=== PATIENT | male | born 1975 | race Caucasian/White ===

== ENCOUNTER 2023-01-19 14:21 | Inpatient (IN) | payer OTHER ==
[2023-01-19 14:53] VITALS: BMI 29.5
[2023-01-19] MEDS ORDERED: NALOXONE HCL 0.4 MG/ML VIAL IM PRN (19:58)
[2023-01-19] MEDS ORDERED: NICOTINE POLACRILEX 2 MG GUM BUC PRN (19:58)
[2023-01-19] MEDS ORDERED: BENZOCAINE/MENTHOL (CHLORASEPTIC ) LOZENGE MM PRN (19:58)
[2023-01-19] MEDS ORDERED: COLLOIDAL OATMEAL 1 BAR EACH TP PRN (19:58)
[2023-01-19] MEDS ORDERED: ACETAMINOPHEN 325 MG TABLET (FP) PO PRN (19:58)
[2023-01-19] MEDS ORDERED: NALOXONE HCL (KLOXXADO) 8 MG SPRAY NS PRN (19:58)
[2023-01-19] MEDS ORDERED: MAG HYDROX/AL HYDROX/SIMETH 30 ML UNIT-DOSE CUP PO PRN (19:58)
[2023-01-19] MEDS ORDERED: guaiFENesin 600 MG TABLET.ER (FP) PO PRN (19:58)
[2023-01-19] MEDS ORDERED: POLYETHYLENE GLYCOL (HEALTHYLAX) 3350 17 GM PACKET PO PRN (19:58)
[2023-01-19] MEDS ORDERED: LOPERAMIDE HCL 2 MG CAPSULE PO PRN (19:58)
[2023-01-19] MEDS ORDERED: BENZONATATE 200 MG CAPSULE PO PRN (19:58)
[2023-01-19] MEDS ORDERED: MAGNESIUM HYDROX 2400MG/30ML ORAL SUSPENSION 30 ML CUP PO PRN (19:58)
[2023-01-19] MEDS: BACITRACIN ZINC 15 GM TUBE TOPICAL OINTMENT TP SCH (21:45)
[2023-01-19] MEDS: SULFAMETHOXAZOLE/TRIMETHOPRIM 800MG/160MG D.S. TABLET PO SCH (21:45)
[2023-01-19] MEDS: THIAMINE HCL 100 MG TABLET (FP) PO SCH (21:45)
[2023-01-19] MEDS: MELATONIN 5 MG TABLETS PO SCH (21:46)
[2023-01-19] MEDS ORDERED: TUBERCULIN PPD 5 TU/0.1ML SYRINGE (IN PATIENT USE ONLY) ID ONE (23:59)
[2023-01-20] MEDS ORDERED: methaDONE HCL 40 MG DISPERSABLE TABLET PO SCH (06:30)
[2023-01-20] MEDS ORDERED: TUBERCULIN PPD 5 TU/0.1ML SYRINGE (IN PATIENT USE ONLY) ID ONE (07:00)
[2023-01-20] MEDS: P-EPHED 60MG/TRIPROLIDI 2.5MG TABLET PO PRN ×2 (09:07→21:23)
[2023-01-20] MEDS: PRENATAL VITAMINS W/ FOLIC ACID TABLET (FP) PO SCH (09:08)
[2023-01-20] MEDS: SULFAMETHOXAZOLE/TRIMETHOPRIM 800MG/160MG D.S. TABLET PO SCH ×2 (09:08→21:22)
[2023-01-20] MEDS: BACITRACIN ZINC 15 GM TUBE TOPICAL OINTMENT TP SCH ×2 (09:08→21:23)
[2023-01-20 11:36] LABS: HEMATOCRIT 36.8 % (35.4-49); HEMOGLOBIN 12.3 GM/dL (11.7-16.9); MCHC 33.5 g/dl (32.0-35.9); MEAN CELL VOLUME 86.6 fl (80-96); MEAN PLT VOLUME 8.3 fl (7.5-11.1); PLATELET COUNT 168 10^3/uL (134-434); RBC 4.24 M/mm3 (4.00-5.60); RDW 13.9 % (11.9-15.9); WHITE BLOOD COUNT 3.6 K/mm3 (4.0-10.0)
[2023-01-20 11:44] LABS: POTASSIUM 4.7 mmol/L (3.5-5.1)
[2023-01-20 11:54] LABS: CALCIUM 8.5 mg/dL (8.5-10.1)
[2023-01-20 11:55] LABS: ALBUMIN 3.6 g/dl (3.4-5.0); BLOOD UREA NITROGEN 18.5 mg/dL (7-18)
[2023-01-20 11:58] LABS: CREATININE 1.2 mg/dL (0.55-1.3)
[2023-01-20 12:00] LABS: BILIRUBIN,TOTAL 0.6 mg/dL (0.2-1)
[2023-01-20 13:15] LABS: SYPHILIS W/ RPR CONF NON-REACTIVE (NONREACTIVE)
[2023-01-20] MEDS: cloNIDine HCL 0.1 MG TABLET PO PRN (14:20)
[2023-01-20] MEDS: IBUPROFEN 600 MG TABLET (FP) PO PRN (14:20)
[2023-01-20] MEDS: THIAMINE HCL 100 MG TABLET (FP) PO SCH (21:22)
[2023-01-20] MEDS: MELATONIN 5 MG TABLETS PO SCH (21:22)
[2023-01-21] MEDS: P-EPHED 60MG/TRIPROLIDI 2.5MG TABLET PO PRN ×3 (00:31→21:40)
[2023-01-21] MEDS: ONDANSETRON *ODT* 4 MG TABLET SL PRN ×3 (00:47→21:40)
[2023-01-21] MEDS: PRENATAL VITAMINS W/ FOLIC ACID TABLET (FP) PO SCH (10:02)
[2023-01-21] MEDS: SULFAMETHOXAZOLE/TRIMETHOPRIM 800MG/160MG D.S. TABLET PO SCH ×2 (10:03→21:40)
[2023-01-21] MEDS: BACITRACIN ZINC 15 GM TUBE TOPICAL OINTMENT TP SCH ×2 (10:03→21:37)
[2023-01-21] MEDS ORDERED: hydrOXYzine PAMOATE 25 MG CAPSULE (FP) PO PRN (13:22)
[2023-01-21] MEDS ORDERED: BISMUTH SUBSALICYLATE 262 MG/15 ML BTL PO PRN (13:22)
[2023-01-21] MEDS ORDERED: DICYCLOMINE HCL 10 MG CAPSULE PO PRN (13:22)
[2023-01-21] MEDS ORDERED: ALBUTEROL SO4 HFA INHALER IH PRN (13:25)
[2023-01-21] MEDS: THIAMINE HCL 100 MG TABLET (FP) PO SCH (21:40)
[2023-01-21] MEDS: MELATONIN 5 MG TABLETS PO SCH (21:40)
[2023-01-21] MEDS: BACLOFEN 10 MG TABLET (FP) PO PRN (21:40)
[2023-01-22 08:25] LABS: PH,URINE 6.5 (5.0-8.0); URINE APPEARANCE CLEAR; URINE BILIRUBIN NEGATIVE (NEGATIVE); URINE COLOR YELLOW; URINE GLUCOSE (UA) NEGATIVE (NEGATIVE); URINE KETONE NEGATIVE (NEGATIVE); URINE LEUK ESTERASE NEGATIVE (NEGATIVE); URINE NITRITE NEGATIVE (NEGATIVE); URINE PROTEIN NEGATIVE (NEGATIVE)
[2023-01-22] MEDS: SULFAMETHOXAZOLE/TRIMETHOPRIM 800MG/160MG D.S. TABLET PO SCH ×2 (11:12→21:24)
[2023-01-22] MEDS: PRENATAL VITAMINS W/ FOLIC ACID TABLET (FP) PO SCH (11:12)
[2023-01-22] MEDS: BACITRACIN ZINC 15 GM TUBE TOPICAL OINTMENT TP SCH ×2 (11:12→21:24)
[2023-01-22] MEDS: THIAMINE HCL 100 MG TABLET (FP) PO SCH (21:24)
[2023-01-22] MEDS: MELATONIN 5 MG TABLETS PO SCH (21:24)
[2023-01-22] MEDS: P-EPHED 60MG/TRIPROLIDI 2.5MG TABLET PO PRN (21:25)
[2023-01-23] MEDS: P-EPHED 60MG/TRIPROLIDI 2.5MG TABLET PO PRN (10:04)
[2023-01-23] MEDS: SULFAMETHOXAZOLE/TRIMETHOPRIM 800MG/160MG D.S. TABLET PO SCH ×2 (10:05→21:51)
[2023-01-23] MEDS: PRENATAL VITAMINS W/ FOLIC ACID TABLET (FP) PO SCH (10:05)
[2023-01-23] MEDS: BACITRACIN ZINC 15 GM TUBE TOPICAL OINTMENT TP SCH ×2 (10:09→21:51)
[2023-01-23] MEDS ORDERED: BACITRACIN 0.9 GM PACKET TP SCH (11:10)
[2023-01-23] MEDS: BACLOFEN 10 MG TABLET (FP) PO PRN (21:50)
[2023-01-23] MEDS: MELATONIN 5 MG TABLETS PO SCH (21:51)
[2023-01-23] MEDS: THIAMINE HCL 100 MG TABLET (FP) PO SCH (21:51)
[2023-01-24] MEDS: SULFAMETHOXAZOLE/TRIMETHOPRIM 800MG/160MG D.S. TABLET PO SCH ×2 (10:04→21:39)
[2023-01-24] MEDS: BACITRACIN ZINC 15 GM TUBE TOPICAL OINTMENT TP SCH ×2 (10:05→21:39)
[2023-01-24] MEDS: PRENATAL VITAMINS W/ FOLIC ACID TABLET (FP) PO SCH (10:05)
[2023-01-24] MEDS: cloNIDine HCL 0.1 MG TABLET PO PRN ×2 (13:25→21:39)
[2023-01-24] MEDS: MELATONIN 5 MG TABLETS PO SCH (21:39)
[2023-01-24] MEDS: THIAMINE HCL 100 MG TABLET (FP) PO SCH (21:39)
[2023-01-25] MEDS: BACITRACIN ZINC 15 GM TUBE TOPICAL OINTMENT TP SCH ×2 (10:08→22:16)
[2023-01-25] MEDS: SULFAMETHOXAZOLE/TRIMETHOPRIM 800MG/160MG D.S. TABLET PO SCH ×2 (10:08→22:15)
[2023-01-25] MEDS: PRENATAL VITAMINS W/ FOLIC ACID TABLET (FP) PO SCH (10:08)
[2023-01-25] MEDS: ONDANSETRON *ODT* 4 MG TABLET SL PRN (12:03)
[2023-01-25] MEDS: cloNIDine HCL 0.1 MG TABLET PO PRN (12:04)
[2023-01-25] MEDS: MELATONIN 5 MG TABLETS PO SCH (22:15)
[2023-01-25] MEDS: THIAMINE HCL 100 MG TABLET (FP) PO SCH (22:15)
[2023-01-26] MEDS: PRENATAL VITAMINS W/ FOLIC ACID TABLET (FP) PO SCH (09:15)
[2023-01-26] MEDS: BACITRACIN ZINC 15 GM TUBE TOPICAL OINTMENT TP SCH ×2 (09:15→22:13)
[2023-01-26] MEDS: SULFAMETHOXAZOLE/TRIMETHOPRIM 800MG/160MG D.S. TABLET PO SCH (09:15)
[2023-01-26] MEDS: ONDANSETRON *ODT* 4 MG TABLET SL PRN (15:27)
[2023-01-26] MEDS: MELATONIN 5 MG TABLETS PO SCH (22:12)
[2023-01-26] MEDS: THIAMINE HCL 100 MG TABLET (FP) PO SCH (22:13)
[2023-01-26] MEDS: cloNIDine HCL 0.1 MG TABLET PO PRN (22:14)
[2023-01-27] MEDS: PRENATAL VITAMINS W/ FOLIC ACID TABLET (FP) PO SCH (10:11)
[2023-01-27] MEDS: BACITRACIN ZINC 15 GM TUBE TOPICAL OINTMENT TP SCH ×2 (10:12→21:43)
[2023-01-27] MEDS: ONDANSETRON *ODT* 4 MG TABLET SL PRN (17:11)
[2023-01-27] MEDS: MELATONIN 5 MG TABLETS PO SCH (21:43)
[2023-01-27] MEDS: THIAMINE HCL 100 MG TABLET (FP) PO SCH (21:44)
[2023-01-28] MEDS: PRENATAL VITAMINS W/ FOLIC ACID TABLET (FP) PO SCH (10:23)
[2023-01-28] MEDS: BACITRACIN ZINC 15 GM TUBE TOPICAL OINTMENT TP SCH ×2 (10:24→21:30)
[2023-01-28] MEDS: IBUPROFEN 600 MG TABLET (FP) PO PRN (10:25)
[2023-01-28] MEDS: cloNIDine HCL 0.1 MG TABLET PO PRN (10:32)
[2023-01-28] MEDS: ONDANSETRON *ODT* 4 MG TABLET SL PRN (13:02)
[2023-01-28] MEDS: THIAMINE HCL 100 MG TABLET (FP) PO SCH (21:29)
[2023-01-28] MEDS: MELATONIN 5 MG TABLETS PO SCH (21:29)
[2023-01-29] MEDS: PRENATAL VITAMINS W/ FOLIC ACID TABLET (FP) PO SCH (09:28)
[2023-01-29] MEDS: BACITRACIN ZINC 15 GM TUBE TOPICAL OINTMENT TP SCH ×2 (10:16→21:22)
[2023-01-29] MEDS: THIAMINE HCL 100 MG TABLET (FP) PO SCH (21:23)
[2023-01-29] MEDS: MELATONIN 5 MG TABLETS PO SCH (21:23)
[2023-01-29] MEDS: cloNIDine HCL 0.1 MG TABLET PO PRN (21:23)
[2023-01-30] MEDS: cloNIDine HCL 0.1 MG TABLET PO PRN ×2 (09:08→21:27)
[2023-01-30] MEDS: BACLOFEN 10 MG TABLET (FP) PO PRN ×2 (09:08→21:27)
[2023-01-30] MEDS: PRENATAL VITAMINS W/ FOLIC ACID TABLET (FP) PO SCH (09:08)
[2023-01-30] MEDS: BACITRACIN ZINC 15 GM TUBE TOPICAL OINTMENT TP SCH ×2 (09:08→21:26)
[2023-01-30] MEDS: MELATONIN 5 MG TABLETS PO SCH (21:25)
[2023-01-30] MEDS: THIAMINE HCL 100 MG TABLET (FP) PO SCH (21:25)
[2023-01-31] MEDS: BACITRACIN ZINC 15 GM TUBE TOPICAL OINTMENT TP SCH ×2 (09:50→21:24)
[2023-01-31] MEDS: PRENATAL VITAMINS W/ FOLIC ACID TABLET (FP) PO SCH (09:51)
[2023-01-31] MEDS: BACLOFEN 10 MG TABLET (FP) PO PRN (21:24)
[2023-01-31] MEDS: THIAMINE HCL 100 MG TABLET (FP) PO SCH (21:24)
[2023-01-31] MEDS: cloNIDine HCL 0.1 MG TABLET PO PRN (21:24)
[2023-01-31] MEDS: MELATONIN 5 MG TABLETS PO SCH (21:24)
[2023-02-01] MEDS: PRENATAL VITAMINS W/ FOLIC ACID TABLET (FP) PO SCH (09:19)
[2023-02-01] MEDS: BACITRACIN ZINC 15 GM TUBE TOPICAL OINTMENT TP SCH ×2 (09:19→21:33)
[2023-02-01] MEDS: BACLOFEN 10 MG TABLET (FP) PO PRN ×2 (09:20→21:34)
[2023-02-01] MEDS: MELATONIN 5 MG TABLETS PO SCH (21:33)
[2023-02-01] MEDS: THIAMINE HCL 100 MG TABLET (FP) PO SCH (21:34)
[2023-02-02] MEDS: PRENATAL VITAMINS W/ FOLIC ACID TABLET (FP) PO SCH (10:14)
[2023-02-02] MEDS: BACITRACIN ZINC 15 GM TUBE TOPICAL OINTMENT TP SCH ×2 (10:14→21:33)
[2023-02-02] MEDS: ONDANSETRON *ODT* 4 MG TABLET SL PRN (17:38)
[2023-02-02] MEDS: THIAMINE HCL 100 MG TABLET (FP) PO SCH (21:34)
[2023-02-02] MEDS: MELATONIN 5 MG TABLETS PO SCH (21:34)
[2023-02-03] MEDS: BACITRACIN ZINC 15 GM TUBE TOPICAL OINTMENT TP SCH ×2 (10:18→21:41)
[2023-02-03] MEDS: PRENATAL VITAMINS W/ FOLIC ACID TABLET (FP) PO SCH (10:18)
[2023-02-03] MEDS: IBUPROFEN 600 MG TABLET (FP) PO PRN (19:56)
[2023-02-03] MEDS: MELATONIN 5 MG TABLETS PO SCH (21:42)
[2023-02-03] MEDS: THIAMINE HCL 100 MG TABLET (FP) PO SCH (21:42)
[2023-02-04] MEDS: PRENATAL VITAMINS W/ FOLIC ACID TABLET (FP) PO SCH (10:01)
[2023-02-04] MEDS: BACITRACIN ZINC 15 GM TUBE TOPICAL OINTMENT TP SCH ×2 (10:01→21:55)
[2023-02-04] MEDS: BACLOFEN 10 MG TABLET (FP) PO PRN (10:02)
[2023-02-04] MEDS: IBUPROFEN 600 MG TABLET (FP) PO PRN (12:55)
[2023-02-04] MEDS: THIAMINE HCL 100 MG TABLET (FP) PO SCH (21:55)
[2023-02-04] MEDS: MELATONIN 5 MG TABLETS PO SCH (21:55)
[2023-02-05] MEDS: PRENATAL VITAMINS W/ FOLIC ACID TABLET (FP) PO SCH (09:44)
[2023-02-05] MEDS: BACITRACIN ZINC 15 GM TUBE TOPICAL OINTMENT TP SCH ×2 (09:44→21:38)
[2023-02-05] MEDS: BACLOFEN 10 MG TABLET (FP) PO PRN (09:45)
[2023-02-05] MEDS: cloNIDine HCL 0.1 MG TABLET PO PRN (09:45)
[2023-02-05] MEDS: IBUPROFEN 600 MG TABLET (FP) PO PRN (14:47)
[2023-02-05] MEDS: THIAMINE HCL 100 MG TABLET (FP) PO SCH (21:38)
[2023-02-05] MEDS: MELATONIN 5 MG TABLETS PO SCH (21:38)
[2023-02-06] MEDS: PRENATAL VITAMINS W/ FOLIC ACID TABLET (FP) PO SCH (09:51)
[2023-02-06] MEDS: BACITRACIN ZINC 15 GM TUBE TOPICAL OINTMENT TP SCH ×2 (09:51→21:44)
[2023-02-06] MEDS: BACLOFEN 10 MG TABLET (FP) PO PRN (09:52)
[2023-02-06] MEDS: IBUPROFEN 600 MG TABLET (FP) PO PRN (11:31)
[2023-02-06] MEDS: MELATONIN 5 MG TABLETS PO SCH (21:44)
[2023-02-06] MEDS: THIAMINE HCL 100 MG TABLET (FP) PO SCH (21:44)
[2023-02-07] MEDS: cloNIDine HCL 0.1 MG TABLET PO PRN (06:17)
[2023-02-07] MEDS: BACLOFEN 10 MG TABLET (FP) PO PRN (09:36)
[2023-02-07] MEDS: PRENATAL VITAMINS W/ FOLIC ACID TABLET (FP) PO SCH (09:36)
[2023-02-07] MEDS: BACITRACIN ZINC 15 GM TUBE TOPICAL OINTMENT TP SCH ×2 (09:36→21:43)
[2023-02-07] MEDS: THIAMINE HCL 100 MG TABLET (FP) PO SCH (21:43)
[2023-02-07] MEDS: MELATONIN 5 MG TABLETS PO SCH (21:43)
[2023-02-08] MEDS: PRENATAL VITAMINS W/ FOLIC ACID TABLET (FP) PO SCH (10:30)
[2023-02-08] MEDS: BACITRACIN ZINC 15 GM TUBE TOPICAL OINTMENT TP SCH ×2 (10:30→21:34)
[2023-02-08] MEDS: BACLOFEN 10 MG TABLET (FP) PO PRN ×2 (10:32→21:34)
[2023-02-08] MEDS: cloNIDine HCL 0.1 MG TABLET PO PRN (10:32)
[2023-02-08] MEDS: MELATONIN 5 MG TABLETS PO SCH (21:34)
[2023-02-08] MEDS: THIAMINE HCL 100 MG TABLET (FP) PO SCH (21:34)
[2023-02-09] MEDS: BACLOFEN 10 MG TABLET (FP) PO PRN (09:41)
[2023-02-09] MEDS: PRENATAL VITAMINS W/ FOLIC ACID TABLET (FP) PO SCH (09:41)
[2023-02-09] MEDS: BACITRACIN ZINC 15 GM TUBE TOPICAL OINTMENT TP SCH ×2 (09:42→21:28)
[2023-02-09] MEDS: IBUPROFEN 600 MG TABLET (FP) PO PRN (15:41)
[2023-02-09] MEDS: THIAMINE HCL 100 MG TABLET (FP) PO SCH (21:28)
[2023-02-09] MEDS: cloNIDine HCL 0.1 MG TABLET PO PRN (21:29)
[2023-02-09] MEDS: MELATONIN 5 MG TABLETS PO SCH (21:30)
[2023-02-10] MEDS: PRENATAL VITAMINS W/ FOLIC ACID TABLET (FP) PO SCH (09:50)
[2023-02-10] MEDS: BACITRACIN ZINC 15 GM TUBE TOPICAL OINTMENT TP SCH ×2 (09:50→21:27)
[2023-02-10] MEDS: THIAMINE HCL 100 MG TABLET (FP) PO SCH (21:27)
[2023-02-10] MEDS: MELATONIN 5 MG TABLETS PO SCH (21:27)
[2023-02-11] MEDS: PRENATAL VITAMINS W/ FOLIC ACID TABLET (FP) PO SCH (10:12)
[2023-02-11] MEDS: BACITRACIN ZINC 15 GM TUBE TOPICAL OINTMENT TP SCH ×2 (10:12→22:17)
[2023-02-11] MEDS: MELATONIN 5 MG TABLETS PO SCH (22:17)
[2023-02-11] MEDS: THIAMINE HCL 100 MG TABLET (FP) PO SCH (22:17)
[2023-02-12] MEDS: BACITRACIN ZINC 15 GM TUBE TOPICAL OINTMENT TP SCH ×2 (10:01→22:54)
[2023-02-12] MEDS: PRENATAL VITAMINS W/ FOLIC ACID TABLET (FP) PO SCH (10:01)
[2023-02-12] MEDS: BACLOFEN 10 MG TABLET (FP) PO PRN (10:01)
[2023-02-12] MEDS: IBUPROFEN 400 MG TABLET (FP) PO PRN (11:06)
[2023-02-12] MEDS: MELATONIN 5 MG TABLETS PO SCH (22:54)
[2023-02-12] MEDS: THIAMINE HCL 100 MG TABLET (FP) PO SCH (22:54)
[2023-02-13] MEDS: BACITRACIN ZINC 15 GM TUBE TOPICAL OINTMENT TP SCH ×2 (09:46→22:10)
[2023-02-13] MEDS: PRENATAL VITAMINS W/ FOLIC ACID TABLET (FP) PO SCH (09:47)
[2023-02-13] MEDS: BACLOFEN 10 MG TABLET (FP) PO PRN (09:47)
[2023-02-13] MEDS: MELATONIN 5 MG TABLETS PO SCH (22:10)
[2023-02-13] MEDS: THIAMINE HCL 100 MG TABLET (FP) PO SCH (22:10)
[2023-02-14] MEDS: cloNIDine HCL 0.1 MG TABLET PO PRN (09:05)
[2023-02-14] MEDS: PRENATAL VITAMINS W/ FOLIC ACID TABLET (FP) PO SCH (09:05)
[2023-02-14] MEDS: BACLOFEN 10 MG TABLET (FP) PO PRN (09:05)
[2023-02-14] MEDS: BACITRACIN ZINC 15 GM TUBE TOPICAL OINTMENT TP SCH ×2 (09:06→21:26)
[2023-02-14] MEDS: THIAMINE HCL 100 MG TABLET (FP) PO SCH (21:27)
[2023-02-14] MEDS: MELATONIN 5 MG TABLETS PO SCH (21:27)
[2023-02-15] MEDS: BACITRACIN ZINC 15 GM TUBE TOPICAL OINTMENT TP SCH ×2 (09:43→21:28)
[2023-02-15] MEDS: PRENATAL VITAMINS W/ FOLIC ACID TABLET (FP) PO SCH (09:44)
[2023-02-15] MEDS: IBUPROFEN 400 MG TABLET (FP) PO PRN (11:48)
[2023-02-15] MEDS: MELATONIN 5 MG TABLETS PO SCH (21:28)
[2023-02-15] MEDS: THIAMINE HCL 100 MG TABLET (FP) PO SCH (21:28)
[2023-02-16] MEDS: cloNIDine HCL 0.1 MG TABLET PO PRN (06:21)
[2023-02-16 06:25] VITALS: RESP 20; TEMP 97.8
[2023-02-16 08:53] VITALS: BP 117/76; PULSE 72
[2023-02-16] MEDS: PRENATAL VITAMINS W/ FOLIC ACID TABLET (FP) PO SCH (09:36)
[2023-02-16] MEDS: BACITRACIN ZINC 15 GM TUBE TOPICAL OINTMENT TP SCH (09:36)
[2023-02-16] MEDS: BACLOFEN 10 MG TABLET (FP) PO PRN (09:37)
== END 2023-02-16 09:45 | disposition home or self-care (01) | DRG 772 ==
LOC: YASAS 14:21 → Y3E 19:28
PROVIDERS: ADMIT Allergy & Immunology; ATTEND Psychiatry & Neurology Pain Medicine
PROC: HZ42ZZZ Group Counseling for Substance Abuse Treatment, Cognitive-Behavioral (ICD-10-PCS; principal; 2023-01-19)
DX: F13.20 Sedative, hypnotic or anxiolytic dependence, uncomplicated (principal); F11.20 Opioid dependence, uncomplicated; F14.20 Cocaine dependence, uncomplicated; B99.8 Other infectious disease; B97.4 Respiratory syncytial virus as the cause of diseases classified elsewhere; R51.9 Headache, unspecified; Z87.891 Personal history of nicotine dependence; Z59.02 Unsheltered homelessness
CPT/HCPCS: 0241U-QW; 36415; 71045-TC-FY; 80053; 81003; 85027; 86780; 86803; 87522; 87635; 93005; 93010; J0475; Q0162

== ENCOUNTER 2024-07-01 12:09 | Inpatient (IN) | payer OTHER ==
[2024-07-01 14:29] VITALS: BMI 30.1
[2024-07-01] MEDS ORDERED: guaiFENesin 600 MG TABLET.ER (FP) PO PRN (17:32)
[2024-07-01] MEDS ORDERED: NALOXONE (NARCAN) HCL 4 MG/0.1 ML SPRAY NS PRN (17:32)
[2024-07-01] MEDS ORDERED: IBUPROFEN 400 MG TABLET (FP) PO PRN (17:32)
[2024-07-01] MEDS ORDERED: BENZOCAINE/MENTHOL (CHLORASEPTIC ) LOZENGE MM PRN (17:32)
[2024-07-01] MEDS ORDERED: MAGNESIUM HYDROX 2400MG/30ML ORAL SUSPENSION 30 ML CUP PO PRN (17:32)
[2024-07-01] MEDS ORDERED: POLYETHYLENE GLYCOL (HEALTHYLAX) 3350 17 GM PACKET PO PRN (17:32)
[2024-07-01] MEDS ORDERED: IBUPROFEN 600 MG TABLET (FP) PO PRN (17:32)
[2024-07-01] MEDS ORDERED: BENZONATATE 200 MG CAPSULE PO PRN (17:32)
[2024-07-01] MEDS: hydrOXYzine PAMOATE 25 MG CAPSULE (FP) PO PRN (18:18)
[2024-07-01 19:24] LABS: URINE APPEARANCE CLEAR; URINE BILIRUBIN NEGATIVE (NEGATIVE); URINE COLOR YELLOW; URINE GLUCOSE (UA) NEGATIVE (NEGATIVE); URINE KETONE NEGATIVE (NEGATIVE); URINE LEUK ESTERASE NEGATIVE (NEGATIVE); URINE NITRITE NEGATIVE (NEGATIVE); URINE PROTEIN NEGATIVE (NEGATIVE); URINE UROBILINOGEN 0.2 mg/dL (0.2-1.0)
[2024-07-01] MEDS: AMOX TR/POT CLAV 875MG/125MG TABLETS (FP) PO SCH (22:42)
[2024-07-01] MEDS: SULFAMETHOXAZOLE/TRIMETHOPRIM 800MG/160MG D.S. TABLET PO SCH (22:42)
[2024-07-01] MEDS: THIAMINE 100 MG TABLET PO SCH (22:42)
[2024-07-01] MEDS: MELATONIN 5 MG TABLETS PO SCH (22:43)
[2024-07-02] MEDS: PRENATAL VITAMINS W/ FOLIC ACID TABLET (FP) PO SCH (10:32)
[2024-07-02] MEDS: methaDONE HCL 40 MG DISPERSABLE TABLET PO SCH (11:02)
[2024-07-02] MEDS: GABAPENTIN 300 MG CAPSULE PO SCH (14:54)
[2024-07-03] MEDS: CLINDAMYCIN PHOSPHATE 1% TOPICAL GEL 30 GM TUBE TP SCH (21:38)
[2024-07-04] MEDS ORDERED: methaDONE HCL 10 MG TABLET PO SCH (06:00)
[2024-07-05] MEDS: ACETAMINOPHEN 325 MG TABLET (FP) PO PRN (21:30)
[2024-07-08] MEDS ORDERED: methaDONE HCL 40 MG DISPERSABLE TABLET PO SCH (06:00)
[2024-07-08] MEDS: MAG HYDROX/AL HYDROX/SIMETH 30 ML UNIT-DOSE CUP PO PRN (10:32)
[2024-07-10] MEDS: VITAMINS A AND D TOPICAL OINTMENT TP SCH (17:13)
[2024-07-10] MEDS: MELATONIN 5 MG TABLETS PO PRN (21:11)
[2024-07-10] MEDS ORDERED: SUVOREXANT 10 MG TABLET PO PRN (22:00)
[2024-07-15] MEDS: LOPERAMIDE HCL 2 MG CAPSULE PO PRN (14:42)
[2024-07-19] MEDS ORDERED: GABAPENTIN 300 MG CAPSULE PO SCH (15:14)
[2024-07-19] MEDS: GABAPENTIN 300 MG CAPSULE PO SCH (21:04)
[2024-07-20] MEDS ORDERED: methaDONE HCL 40 MG DISPERSABLE TABLET PO SCH (06:00)
[2024-07-20 10:38] LABS: HEMATOCRIT 37.5 % (40.1-51.0); HEMOGLOBIN 12.2 g/dL (13.7-17.5); MCHC 32.5 g/dl (32.3-36.5); MEAN PLT VOLUME 10.5 fl (9.4-12.4); PLATELET COUNT 196 x10^3/uL (163-337); RDW 13.7 % (12.1-15.9)
[2024-07-20 11:06] LABS: POTASSIUM 4.4 mmol/L (3.5-5.1)
[2024-07-20 11:17] LABS: BILIRUBIN,TOTAL 0.4 mg/dL (0.2-1); TOT PROT 7.6 g/dl (6.4-8.2)
[2024-07-20 11:20] LABS: ALBUMIN 3.9 g/dl (3.4-5.0); BLOOD UREA NITROGEN 24.8 mg/dL (7-18); CALCIUM 9.9 mg/dL (8.5-10.1); CREATININE 1.2 mg/dL (0.55-1.3)
[2024-07-20] MEDS: BACLOFEN 10 MG TABLET (FP) PO SCH (21:05)
[2024-07-21] MEDS: CHOLECALCIFEROL (VIT D3) 400 UNIT (10 MCG) TABLET PO SCH (17:25)
[2024-07-27] MEDS ORDERED: methaDONE HCL 40 MG DISPERSABLE TABLET PO SCH (06:00)
[2024-07-28 06:23] VITALS: BP 142/85; PULSE 62; RESP 18; TEMP 97.1
== END 2024-07-28 09:04 | disposition home or self-care (01) | DRG 772 ==
LOC: YASAS 12:09 → Y3NR 17:39 → Y3W 07-02 15:15
PROVIDERS: ADMIT Psychiatry & Neurology Pain Medicine; ATTEND Psychiatry & Neurology Pain Medicine
PROC: HZ42ZZZ Group Counseling for Substance Abuse Treatment, Cognitive-Behavioral (ICD-10-PCS; principal; 2024-07-01)
DX: F10.20 Alcohol dependence, uncomplicated (principal); F13.20 Sedative, hypnotic or anxiolytic dependence, uncomplicated; F14.20 Cocaine dependence, uncomplicated; F11.20 Opioid dependence, uncomplicated; F19.282 Other psychoactive substance dependence with psychoactive substance-induced sleep disorder; F32.A Depression, unspecified; L02.414 Cutaneous abscess of left upper limb; Z87.891 Personal history of nicotine dependence; Z59.02 Unsheltered homelessness
CPT/HCPCS: 36415; 71046-TC-FY; 80053; 80061; 80305; 81003; 82652; 83036; 85027; 86803; 87522; 93005; 93010; J0475